=== PATIENT | male | born 1955 | race Caucasian/White ===

== ENCOUNTER → 2019-05-14 | Outpatient (CLI) | payer MEDICARE ==
--- NOTE | 2019-05-14 16:51 | CT ---
EXAMINATION TYPE: CT abdomen pelvis wo con DATE OF EXAM: 05/14/2019 COMPARISON: None INDICATION: Lower abdominal pain DLP: 1061 mGycm, Automated exposure control for dose reduction was used. CONTRAST: 0 mL of Isovue 300. Study performed with Oral Contrast TECHNIQUE: Axial images were obtained from above the diaphragm to the pubic rami in the axial plane a t 5 mm thick sections. Reconstructed images are reviewed on the computer in the coronal plane. FINDINGS: Limited CT sections are obtained the lung bases. The lung bases are clear. CT ABDOMEN: Liver: Normal Spleen: Normal Pancreas: Normal Adrenal glands: The adrenal glands are normal. Gallbladder: Surgically absent Kidneys: No masses are evident. No hydronephrosis is present. No cysts are present. There is a non obstructing 0.2 cm calcification in the posterior left mid kidney. Aorta: Vascular calcification is within the aorta. Inferior vena cava: Normal. CT PELVIS: Loops of bowel within the abdomen and pelvis are normal. Study is performed with oral contrast wh ich extends to the ascending colon. Appendix: Normal as visualized. Urinary bladder: Normal. Genitourinary structures: Prostate is somewhat prominent. Osseous structures: No suspicious lytic or sclerotic lesions. IMPRESSIONS: 1. Nonobstructing right renal stone. 2. Moderately Prominent prostate
--- NOTE | 2019-05-14 16:53 | XR ---
Lumbosacral spine HISTORY: Low back pain 5 views of lumbosacral spine There is multilevel spondylosis present. Minimal retrolisthesis grade 1 L3-4. No evident spondylolysi s. Sclerosis present in the posterior elements of the lower lumbar spine. Loss of disc height present at L2-3, L5-S1. Bone mineralization is reduced. Lumbar vertebral bodies show preserved height. Ather osclerotic vascular calcifications noted within the aorta. Surgical clips noted in the right upper qu adrant. IMPRESSION: Degenerative disc disease and facet arthropathy. Osteopenia.
--- NOTE | 2019-05-14 16:57 | XR ---
Pelvis HISTORY: Lower abdominal pain Single frontal view of the pelvis. Correlation CT dated 05/14/2019 Sclerotic linear foci within the femoral heads are noted. There is no acute fracture or dislocation. Degenerative disc changes are present in the visualized spine. IMPRESSION: Findings compatible with osteonecrosis within the femoral heads. No femoral head collapse .
== END ==
LOC: RADCTMAIN 14:02
PROVIDERS: ATTEND Family Medicine
DX: M51.37 Other intervertebral disc degeneration, lumbosacral region (principal); M46.97 Unspecified inflammatory spondylopathy, lumbosacral region; M85.80 Other specified disorders of bone density and structure, unspecified site; N20.0 Calculus of kidney; R10.30 Lower abdominal pain, unspecified
CPT/HCPCS: 72110; 72170; 74176; Q9967

== ENCOUNTER → 2019-10-01 | Outpatient (CLI) | payer MEDICARE ==
[2019-10-01 10:32] LABS: HCT 45.1 % (39.0-53.0); HGB 14.6 gm/dL (13.0-17.5); MCH 29.5 pg (25.0-35.0); MCHC 32.3 g/dL (31.0-37.0); MCV 91.2 fL (80.0-100.0); Mean Platelet Volume 8.5; Platelet Count 233 k/uL (150-450); RBC 4.95 m/uL (4.30-5.90); RDW 12.7 % (11.5-15.5); WBC 9.5 k/uL (3.8-10.6)
[2019-10-01 10:41] LABS: Potassium 4.7 mmol/L (3.5-5.1)
== END | disposition home or self-care (01) ==
LOC: LABPAT 09:50
PROVIDERS: ATTEND Internal Medicine Interventional Cardiology
DX: Z01.812 Encounter for preprocedural laboratory examination (principal); R94.39 Abnormal result of other cardiovascular function study
CPT/HCPCS: 36415; 80051; 82565; 84520; 85027

== ENCOUNTER → 2019-10-06 | Day surgery (SDC) | payer MEDICARE ==
[2019-10-02 14:53] VITALS: BMI 38.9
[~2019-10-06] MED LIST: ALPRAZolam 0.25 MG TAB PO PRN; ALPRAZolam 0.5 MG TAB PO PRN; ASPIRIN 325 MG TAB PO ONE; ASPIRIN 81 MG PO SCH; ATORVASTATIN 80 MG TAB PO ONE; HEPARIN SODIUM 1,000 UN/ML (10ML VL) ONE; IOPAMIDOL-370 125ML BTL INJ ONE; LIDOCAINE 1% INJ 10MG/ML (20 ML MDV) ONE; LIDOCAINE 1% INJ 10MG/ML (20 ML MDV) SQ ONE; LISINOPRIL 10 MG TAB PO SCH; METOCLOPRAMIDE 10 MG TAB PO SCH; METOPROLOL TARTRATE 25 MG TAB PO SCH; NITROGLYCERIN SL TABS 0.4 MG TAB SUBLINGUAL PRN; NON FORMULARY DRUG (Latanoprost/Pf [Latanoprost 0.005% Eye Drop] 1 DROP) BOTH EYES SCH; NON FORMULARY DRUG (Lovastatin 40 MG) PO SCH; NON FORMULARY DRUG (Omeprazole [Omeprazole] 20 MG) PO SCH; PREGABALIN 200 MG PO SCH; RX INFO: IV CONTRAST WAS GIVEN 1 EACH MISC MISCELLANE PRN; SERTRALINE 25 MG TAB PO SCH; SODIUM CHLORIDE 0.9% 1,000 ML IV SCH; SODIUM CHLORIDE 0.9% 1,000 ML in EMPTY BAG 1 BAG IV ONE; VERAPAMIL 2.5 MG/ML 2 ML AMP ONE; VERAPAMIL SYRINGE (5 MG/10 ML) INTRAARTER ONE; amLODIPine 2.5 MG TAB PO SCH; fentaNYL (PF) 50 MCG/ML 2 ML AMP IV ONE; fentaNYL (PF) 50 MCG/ML 2 ML AMP ONE
[2019-10-06 11:15] VITALS: RESP 18; TEMP 97.7
--- NOTE | 2019-10-06 13:59 | LTR ---
DATE OF SERVICE: 10/06/2019 RE: Adrien Arteaga Dear Dr. Aguilar; I had the pleasure to perform cardiac catheterization at [facility] on October 06, 2019 and a fully copy of the procedure note will be forwarded to you. In brief, he was found to have mild obstructive disease without any evidence of high- grade stenosis and based on those findings, I would recommend continue medical therapy with the aggressive coronary risk modifications being initiation. Thank you again for allowing me to participate in this patient's care. Please feel free to call for any questions. Sincere yours, Jen Silverio MD MMKYLEL / AISHWARYAN: [phone] /
--- NOTE | 2019-10-06 13:59 | CC ---
CARDIAC CATHETERIZATION REPORT Mr. Arteaga is a 64-year-old male with a known history of hypertension, hyperlipidemia, who has been complaining of symptoms of progressive dyspnea and chest discomfort. He had a myocardial perfusion imaging that revealed apical defect. In view of that, recommendation made regarding cardiac catheterization. The procedures, risks, and complication were discussed with the patient who is in full understanding and agreement. PROCEDURE: Patient was brought to the laborer beam house in a fasting semi-sedated state after receiving fentanyl and Benadryl and achieving moderate conscious sedated state. Using Xylocaine anesthesia and Seldinger technique, a 6-Ecuadorean sheath was introduced in the right radial artery. Selective right and left coronary angiography performed using 5-Ecuadorean 3.5 bend right and left Leena catheter. Multiple views of the coronary artery including hemiaxial views obtained. Following that, a 5-Ecuadorean tight pigtail catheter was introduced in the left ventricle and a 30-degree TOVAR view of the left ventricle was obtained. Following that, catheter and sheath were removed. Hemostasis was obtained with deployment of a TR band. There was no immediate complication. Patient is returned to his room in stable condition. Of note, the patient received 5000 units of intravenous heparin as well as intra-arterial verapamil. FINDINGS: 1. LEFT MAIN: This is a large-sized vessel, bifurcating into left circumflex, left anterior descending artery. Left main coronary artery has no evidence of high- grade stenosis. 2. LEFT ANTERIOR DESCENDING ARTERY: This is a large-sized vessel reaching toward the apex with a wraparound apex segment, giving rise to a large diagonal branch proximally. The takeoff of diagonal branch has a 20% to 30% plaque. The mid LAD has mild intimal disease of 10% to 20% without any evidence of high-grade stenosis. 3. LEFT CIRCUMFLEX: This is a codominant vessel, giving rise to 2 obtuse marginal branches of moderate caliber, distally bifurcating PDA and posterolateral segment and branches. The left circumflex as well as branches have no evidence of obstructive coronary artery disease. 4. RIGHT CORONARY ARTERY: This is a codominant vessel, moderate in caliber, giving rise to a PDA. The right coronary artery prior to the takeoff of the acute marginal branch has a 20% to 30% plaque. The rest of the vessel has no high-grade stenosis. 5. LEFT VENTRICULOGRAM: Left ventriculogram is performed in 30-degree TOVAR view and revealed normal left ventricular size and systolic function. The ejection fraction is 50%-55%. 6. HEMODYNAMICS: There was no gradient across the aortic valve. The left ventricular end-diastolic pressure was 20 mmHg. CONCLUSION: 1. Mild obstructive disease involving the diagonal branch and the right coronary artery. 2. Normal left ventricular size and systolic function. RECOMMENDATION: 1. In view of finding anatomy, I recommend continue medical therapy with aggressive coronary risk modifications being initiated. Those findings and recommendation were discussed with the patient and his family and they are in full understanding and agreement. 2. Duration of the procedure is 27 minutes. MMODL / IJN: [id number] /
[2019-10-06 17:29] VITALS: BP 110/62; PULSE 52
== END | disposition home or self-care (01) ==
LOC: CATHCVL 10:32
PROVIDERS: ATTEND Internal Medicine Interventional Cardiology
DX: I25.10 Atherosclerotic heart disease of native coronary artery without angina pectoris (principal); I10 Essential (primary) hypertension; R94.39 Abnormal result of other cardiovascular function study; Z87.891 Personal history of nicotine dependence; E78.5 Hyperlipidemia, unspecified; E78.00 Pure hypercholesterolemia, unspecified; Z82.49 Family history of ischemic heart disease and other diseases of the circulatory system; Z79.82 Long term (current) use of aspirin; Z79.899 Other long term (current) drug therapy
CPT/HCPCS: 93458; C1769; C1894; J2001; J3010; J1644; Q9967

== ENCOUNTER → 2020-05-11 | Outpatient (CLI) | payer MEDICARE ==
--- NOTE | 2020-05-11 14:41 | CT ---
CT CHEST FOR PULMONARY EMBOLISM. EXAMINATION TYPE: CT angio chest DATE OF EXAM: 05/11/2020 INDICATION: Abnormal coagulation profile CT DLP: 499.20 mGycm, Automated exposure control for dose reduction was used. CONTRAST: Patient injected with 100 mL of Isovue 370. COMPARISON: None TECHNIQUE: CT of the chest is performed on a spiral scan at 2 mm thick sections. Study is performed with intravenous contrast timed for evaluation for pulmonary embolism. This will limit additional po rtions of the evaluation. 3-D MIP images reconstructed by the technologist are reviewed on the compu ter in the coronal and sagittal planes. FINDINGS: No persistent filling defects are evident to suggest an acute pulmonary embolism. No mediastinal or hilar adenopathy enlarged by CT criteria is evident. The ascending aorta diameter at the level of the main pulmonary artery is 3.6 cm. The main pulmonary artery diameter at the bifur cation is 2.4 cm. There is a 0.6 similar peripheral right middle lobe nodule. Series [address] section through the upper abdomen are unremarkable. Small hiatal hernia is present. IMPRESSIONS: 1. No acute pulmonary embolism 2. Right middle lobe peripheral nodule. Follow-up CT chest exam in 6 months is recommended to reevalu ate this finding
== END | disposition home or self-care (01) ==
LOC: RADCTMAIN 12:20
PROVIDERS: ATTEND Family Medicine
DX: R91.1 Solitary pulmonary nodule (principal); R79.1 Abnormal coagulation profile
CPT/HCPCS: 82565; 84520; 71275; 36415; Q9967

== ENCOUNTER → 2020-07-07 | Outpatient (CLI) | payer MEDICARE ==
--- NOTE | 2020-07-07 16:36 | CONS ---
CONSULTATION DATE OF SERVICE: 07/07/2020 The 64-year-old gentleman has been evaluated in [facility] for possible obstructive sleep apnea-hypopnea syndrome. HISTORY OF PRESENT ILLNESS/SLEEP-WAKE EVALUATION: Patient's usual sleep schedule is from 11 p.m. until noon. Sometimes he has problems with falling asleep although no TV in bedroom . He usually sleeps on the side position with loud snoring and witnessed episodes by his of stopped breathing during sleep. He wakes up from sleep 3 times with nocturia and heartburn. In the morning the patient has difficulties paying attention, falling asleep during the day, worrying about his sleep. He has problems with memory, concentration, irritability, depression, sexual dysfunction. Independence Sleepiness Scale is 8. The patient also has restless leg symptoms. PAST MEDICAL HISTORY: His past medical history is positive for hypertension, hyperlipidemia, headaches, acid reflux, skin cancer of the arms. PAST SURGICAL HISTORY: Surgery for skin cancer of the arms, back surgery, cholecystectomy. FAMILY HISTORY: Heart problems. SOCIAL HISTORY: Smoker; up to 50 pack/years; quit in 2007. Alcohol consumption: None at the present time. REVIEW OF SYSTEMS: Multiple awakenings from sleep, tiredness and sleepiness during the day. MEDICATIONS: 1. Sertraline 25 mg once a day. 2. Aspirin 81 mg once a day. 3. Metformin 500 mg once a day. 4. Amlodipine 5 mg once a day. 5. Lisinopril 10 mg once a day. 6. Lovastatin 40 mg once a day. 7. Metoclopramide 10 mg one tablet 3 times a day. 8. Omeprazole 20 mg two capsules once a day. 9. Metoprolol 25 mg twice a day. 10.Pregabalin 200 mg twice a day. PHYSICAL EXAMINATION: GENERAL: A pleasant gentleman without distress. VITAL SIGNS: BP 119/64, HR 54, RR 15, height 5 feet 4 inches, weight 232 pounds, BMI 39.8, temperature 97.5, oxygen saturation at room air 95%. HEENT: PERRLA, EOMI. Evaluation of oropharynx showed tongue protrudes midline. Extremely low position of soft palate. Mallampati IV. NECK: Supple. No JVD. Thyroid is not palpable. Wide neck; 20-1/2 inches in circumference. LUNGS: Clear to percussion and to auscultation. Good air exchange. No wheezing or rhonchi. HEART: S1, S2 regular. No murmurs, gallops or rubs. ABDOMEN: Obese. EXTREMITIES: No clubbing or cyanosis. TRACER POWDER BLENDER: Awake, alert, and oriented X3. Cranial nerves 2 to 7 intact. There is no fasciculation or atrophy. noted. No focal deficits observed. IMPRESSION: 1. Snoring, witnessed episodes of stopped breathing during sleep, low position of soft palate, wide neck; obstructive sleep apnea-hypopnea syndrome. 2. Obesity. BMI 39.8. 3. Hypertension. 4. Hyperlipidemia. 5. Headaches. 6. Acid reflux. 7. Possibly restless legs syndrome. 8. History of skin carcinoma of the arms, treated surgically. 9. Status post cholecystectomy. 10.Status post back surgery. PLAN: 1. Polysomnography for evaluation of patient's breathing during sleep. 2. CPAP/BiPAP titration if sleep study confirms obstructive sleep apnea-hypopnea syndrome. 3. Preferable position during sleep on the side. 4. No driving if patient feels any sleepiness. 5. I will see patient for follow up visit to explain results of testing and following plan. Thank you very much for referring this patient for consultation. Sincerely, Sharif Bhatti MD, PhD, FAASM Diplomat of [place] [employer] [place] [employer] Underwriting Technician of [facility] [place] MMYOSELYN / MALIA: [phone] / MTDD
== END | disposition home or self-care (01) ==
LOC: SLEEP 14:55
PROVIDERS: ATTEND Internal Medicine
DX: G47.33 Obstructive sleep apnea (adult) (pediatric) (principal); I10 Essential (primary) hypertension; E78.5 Hyperlipidemia, unspecified; R51.9 Headache, unspecified; K21.9 Gastro-esophageal reflux disease without esophagitis; Z85.828 Personal history of other malignant neoplasm of skin; Z90.49 Acquired absence of other specified parts of digestive tract; Z98.890 Other specified postprocedural states; E66.9 Obesity, unspecified; Z99.89 Dependence on other enabling machines and devices; Z79.899 Other long term (current) drug therapy; Z79.82 Long term (current) use of aspirin; Z79.84 Long term (current) use of oral hypoglycemic drugs; Z68.39 Body mass index [BMI] 39.0-39.9, adult
CPT/HCPCS: 99211

== ENCOUNTER → 2024-01-06 | Outpatient (CLI) | payer MEDICARE ==
[2024-01-06 07:59] LABS: INR 0.9 (<1.2); Prothrombin Time 10.5 sec (10.0-12.5)
--- NOTE | 2024-01-06 08:12 | XR ---
EXAMINATION TYPE: XR chest 2V DATE OF EXAM: 01/06/2024 7:40 AM CLINICAL INDICATION:Male, 68 years old with history of ENCOUNTER FOR OTHER PREPROCEDURAL EXAMINATION; [facility] COMPARISON: Chest radiographs from 01/06/2024 TECHNIQUE: XR chest 2V Frontal and lateral views of the chest. FINDINGS: Lungs/Pleura: There is no evidence of pleural effusion, focal consolidation, or pneumothorax. Pulmonary vascularity: Unremarkable. Heart/mediastinum: Cardiomediastinal silhouette is unremarkable. Musculoskeletal: No acute osseous pathology. There is fixation hardware in the lower cervical spine. IMPRESSION: No acute cardiopulmonary disease/process.
[2024-01-06 08:14] LABS: Partial Thromboplastin Time 19.9 sec (22.0-30.0)
[2024-01-06 10:22] LABS: Basophils # (A) 0.03 X 10*3/uL (0.00-0.10); Basophils % (A) 0.5 %; Eosinophils # (A) 0.15 X 10*3/uL (0.04-0.35); Eosinophils % (A) 2.6 %; HCT 34.8 % (39.6-50.0); HGB 10.5 g/dL (13.0-17.0); Lymphocytes # (A) 1.78 X 10*3/uL (0.90-5.00); Lymphocytes % (A) 31.3 %; MCH 27.4 pg (27.0-32.0); MCHC 30.2 g/dL (32.0-37.0); MCV 90.9 FL (80.0-97.0); Mean Platelet Volume 10.7 FL (9.5-12.2); Monocytes # (A) 0.52 X 10*3/uL (0.20-1.00); Monocytes % (A) 9.1 %; NRBC Per 100 WBC 0 X 10*3/uL (0.00-0.01); Neutrophils % (A) 56.3 %; Platelet Count 177 X 10*3/uL (140-440); RBC 3.83 X 10*6/uL (4.40-5.60); RDW 13.9 % (11.5-14.5); WBC 5.69 X 10*3/uL (4.50-10.00)
[2024-01-06 10:37] LABS: BUN/Creat Ratio 12.21 Ratio (12.00-20.00); Blood Urea Nitrogen 17.1 mg/dL (9.0-27.0); Calcium 8.9 mg/dL (8.7-10.3); Carbon Dioxide 24.8 mmol/L (21.6-31.8); Chloride 102 mmol/L (96-109); Glucose 105 mg/dL (70-110); Potassium 4.9 mmol/L (3.5-5.5); Sodium 138 mmol/L (135-145)
[2024-01-06 13:14] LABS: Appearance,Urine Clear (Clear); Bilirubin,Urine Negative (Negative); Blood,Urine Negative (Negative); Color,Urine Yellow (Yellow); Ketones,Urine Negative (Negative); Nitrite,Urine Negative (Negative); PH, Urine 5.5; Specific Gravity,Urine 1.009 (1.001-1.030); Urobilinogen,Urine 0.2 E.U./DL
== END | disposition home or self-care (01) ==
LOC: LABWHC1 06:55
PROVIDERS: ATTEND Orthopaedic Surgery Orthopaedic Surgery of the Spine
DX: Z01.818 Encounter for other preprocedural examination (principal); M50.223 Other cervical disc displacement at C6-C7 level; R00.1 Bradycardia, unspecified; Z22.322 Carrier or suspected carrier of Methicillin resistant Staphylococcus aureus
CPT/HCPCS: 36415; 71046; 80048; 81003; 85025; 85610; 85730; 87070; 93005

== ENCOUNTER 2024-01-22 06:06 | Day surgery (SDC) | payer MEDICARE ==
[2024-01-22] MEDS ORDERED: HYDROmorphone 0.5 MG/0.5 ML SYRINGE IVP PRN ×2 (06:13→09:11)
[2024-01-22] MEDS ORDERED: fentaNYL (PF) 50 MCG/ML 2 ML AMP IV PRN (06:13)
[2024-01-22] MEDS: IV FLUID CONTINUATION 1,000 ML IV ONE (07:00)
[2024-01-22] MEDS: LACTATED RINGERS 1,000 ML IV SCH (07:00)
[2024-01-22] MEDS: LIDOCAINE 1% (10MG/ML) FOR IV START INTRADERMA ONE (07:00)
[2024-01-22] MEDS: ONDANSETRON 4 MG/2 ML VIAL IVP ONE (07:14)
[2024-01-22] MEDS ORDERED: GLYCOPYRROLATE 0.2 MG/ML 2 ML VIAL ONE (07:22)
[2024-01-22] MEDS ORDERED: ROCURONIUM 10 MG/ML (5 ML VIAL) IV ONE (07:22)
[2024-01-22] MEDS ORDERED: PHENYLEPHRINE 10 MG/ML VIAL ONE (07:22)
[2024-01-22] MEDS ORDERED: NEOSTIGMINE 1 MG/ML 10 ML VIAL ONE (07:22)
[2024-01-22] MEDS ORDERED: SUCCINYLCHOLINE CHLORIDE 200 MG/10 ML VIAL IV ONE (07:22)
[2024-01-22] MEDS ORDERED: MIDAZOLAM 2 MG/2 ML VIAL ONE (07:22)
[2024-01-22] MEDS ORDERED: PROPOFOL 10 MG/ML 20 ML VIAL IV ONE (07:22)
[2024-01-22] MEDS ORDERED: ePHEDrine 50 MG/ML 1 ML VIAL ONE (07:22)
[2024-01-22] MEDS ORDERED: fentaNYL (PF) 50 MCG/ML 2 ML AMP ONE (07:22)
[2024-01-22] MEDS ORDERED: LIDOCAINE 1% INJ 10MG/ML (20 ML MDV) ONE (07:22)
[2024-01-22 07:25] LABS: Glucose,Whole Blood 102 mg/dL (70-110)
[2024-01-22] MEDS: BUPIVACAINE (PF) 0.5% 30 ML VIAL SQ ONE ×2 (08:09)
[2024-01-22] MEDS: LIDOCAINE 2%-EPI 1:100,000 20 ML VIAL SQ ONE ×2 (08:09)
[2024-01-22] MEDS: THROMBIN (BOVINE) 5,000 UNIT VIAL MISCELLANE ONE (08:10)
[2024-01-22] MEDS: ceFAZolin 1,000 MG in SODIUM CHLORIDE 0.9% IRRIGATIO 1,000 ML IRRIGATION PRN (08:13)
[2024-01-22] MEDS: LACTATED RINGERS 1,000 ML IV ONE (09:01)
[2024-01-22] MEDS ORDERED: HYDROmorphone 1 MG/ML 1 ML SYRINGE IVP PRN (09:11)
[2024-01-22] MEDS ORDERED: BENZOCAINE/MENTHOL LOZENG 1 EACH LOZENGE MUCOUS MEM PRN (09:11)
[2024-01-22] MEDS ORDERED: HYDROcodone/APAP 5-325MG 1 EACH TAB PO PRN (09:11)
[2024-01-22] MEDS ORDERED: ACETAMINOPHEN TAB 325 MG TAB PO PRN (09:12)
[2024-01-22] MEDS ORDERED: CYCLOBENZAPRINE 10 MG TAB PO PRN (09:12)
[2024-01-22] MEDS ORDERED: ONDANSETRON 4 MG/2 ML VIAL IVP PRN (09:12)
[2024-01-22] MEDS ORDERED: SODIUM CHLORIDE 0.9% 1,000 ML IV SCH (09:15)
[2024-01-22 09:21] VITALS: TEMP 97
--- NOTE | 2024-01-22 09:22 | XR ---
EXAMINATION TYPE: XR cervical spine 1V, XR cervical spine 1V DATE OF EXAM: 01/22/2024 8:33 AM CLINICAL INDICATION:Male, 68 years old with history of Needle Placement; [facility] COMPARISON: 01/22/2024 TECHNIQUE: Multiple Lateral cervical radiograph for surgical planning FINDINGS: The needle is directed in the anterior subcutaneous tissues due to poor penetration is difficult to a scertain which vertebral body is detected at appears to be directed towards the C6 level which is not visualized due to poor penetration. IMPRESSION: Degeneration changes of cervical spine. Instrument partially visualized in the anterior soft tissues of the thorax directing towards the spin e wo particular level may be pointed toward C6.
--- NOTE | 2024-01-22 09:24 | P.OP ---
Date of Procedure: 01/22/24 Preoperative Diagnosis: Cervical stenosis C6 7, herniated nucleus pulposis C6 7, upper extremity radiculopathy, retained hardware C5 6 from prior fusion Postoperative Diagnosis: Same Anesthesia: GETA Pathology: none sent Condition: stable Disposition: PACU Description of Procedure: BRIEF OPERATIVE NOTE Preoperative Diagnosis:Cervical stenosis C6 7, herniated nucleus pulposis C6 7, upper extremity radiculopathy, retained hardware C5 6 from prior fusion Postoperative Diagnosis:Cervical stenosis C6 7, herniated nucleus pulposis C6 7, upper extremity radiculopathy, retained hardware C5 6 from prior fusion Procedure: Removal of hardware C5 6 Exploration of fusion C56 with findings of solid fusion Anterior cervical decompression With discectomy and fusion C6 7 Placement of interbody graft C6 7 Application of anterior cervical plateC6 7 Surgeon: Dr. Armendariz Motion Picture Set Grip: Jj Morales is present throughout the entire the case persistence during positioning, dissection, exposure, visualization, and all crucial elements of the case as well as closure.True FLYNN student Anesthesia: General anesthesia Estimated blood loss:Approximately 50 mL Complications: None apparent Components implanted:K2M striker Carlton anterior cervical plate with 3.5 and 4.0 screws and Vikos interbody allograft bone graft with 1 mL of bone putty with removal of Medtronic zephyr plate and screws in total Disposition: To recovery room in good stable condition. OPERATIVE INDICATIONS The patient has had long-standing issues in their neck and upper extremities. He's been having some worsening symptoms over the past several months. About 14 years ago he had undergone prior surgery on his cervical spine with our service and underwent anterior cervical decompression with discectomy and fusion at C5 6. He did very well with this for over a decade. However over the past few months he has been having worsening and new symptoms at his bilateral upper extremities.The patient has been through conservative treatment. His found have retained hardware at C5 6 with evidence of new disc degeneration and disc herniation with stenosis at C6 7 which correlated well with his neck and upper extremity symptoms.We discussed various treatment options including surgery, and the patient wishes to proceed with surgery We discussed the risk, patient's alternatives and benefits of surgery including but not limited to, risk of bleeding risk of infection, risk of need for further surgery, risk of decreased, loss of motion, muscle function, malunion nonunion, hardware failure, nerve damage, paralysis, heart attack, and . OPERATIVE SUMMARY After discussing all the risks, patient alternatives and benefits at length, the patient elected to proceed with surgical intervention, signed informed consent, and presented for their procedure. The patient was seen and examined in the preoperative holding area and the surgical site was marked. The patient was given antibiotics and brought to the operating room. The patient was positioned on the operating room table in a supine position being careful to pad any bony prominences and pressure points. The patient was sedated and intubated by anesthesia in standard fashion. Once the airway and C- spine were stabilized the patient's arms were padded and tucked at His side, w ith her shoulders gently taped. The head was placed in a donut pad with the neck in good neutral alignment and position. We were careful to maintain the patient's cervical spine and good neutral alignment and position throughout. The patient was prepped and draped in a normal standard fashion. An appropriate timeout and keystone protocol performed. We were able to proceed with the surgery. The local wound area was infiltrated with local anesthetic. An incision was made transversely approximately 2-1/2 cm over the appropriate levelsBelow his prior incision now over C6 7. Dissection was taken down subcutaneously to the level of the platysma which was split in line with its fibers. Dissection was taken with a carotid approach, with the trachea and esophagus medial and the carotid sheath laterally. We dissected down to the anterior surface of the vertebral bodies. I was able to easily identify the plate at C5 6 and expose the direct caudad disc at C6 7. Intraoperative x-ray was taken which showed a marker at the appropriate level. I was able to expose the plate at C5 6. With the appropriate transportation is able to remove the plate and screws as it was going to be potentially impinging over the next level hardware. As able move the screws and plate in total. The fusion was checked and found to have solid bone growth across the space from C5 6 for some of fusion. I further dissected down to C6 7 appropriately.With the appropriate level positively confirmed, we were able to proceed with discectomy at the appropriate levelsAt C6 7. All of the operative levels were exposed appropriately. The patient had all their twitches back, and there was no evidence of recurrent laryngeal issue. The wound was copiously irrigated and suctioned dry as had been done periodically throughout the case. At the appropriate level Of C6 7, I established an annulotomy with an 11 blade scalpel. A discectomy was performed with a combination of pituitary rongeurs, curettes, a high-speed bur, and Kerrison rongeurs. The posterior longitudinal ligament was taken down as were any posterior osteophytes. This gave good central and bilateral foraminal decompression. There is no evidence of any dural tear or leak. The endplates were prepared with a high-speed bur. With the endplates in good parallel position, I was able to size for the appropriate size interbody graft. The wound was irrigated and suctioned dry the graft was prepared and malleted into position. It had good alignment and position with the anterior surface flush with the anterior surface of the vertebral bodies. With the grafts intact, I was able to measure and contour and appropriate sized plate. The plate was positioned at the midline over the appropriate levelsC6 7. Screw holes were established with a hand drill and drill guide. Screws were placed in good alignment and position with excellent bony purchase. They were seated under the locking device. The construct was checked and found to be stable. Intraoperative x-ray was taken which showed good alignment and position of the implants at the appropriate levelsThe being imaging is difficult due to patient's body habitus I was able to positively confirmed based on the prior hardware intraoperatively.. There was no evidence of any dural tear or leak. Good hemostasis was maintained. The wound was copiously irrigated and suctioned dry as had been done periodically throughout the case. The platysma was closed with absorbable suture. The subcutaneous tissue was closed. The subcuticular tissue was closed with absorbable suture. The wound was cleaned and dried and dressed appropriately. A soft cervical collar was placed appropriately. The patient was woken up by anesthesia, extubated, transferred back gently to their hospital bed and brought to the recovery room in good stable condition. The patient will be admitted to the hospital for appropriate postoperative care, medical management and monitoring. We will continue to follow them closely about the postoperative course.
[2024-01-22 10:49] VITALS: RESP 18
[2024-01-22] MEDS: TAMSULOSIN 0.4 MG CAP.ER.24H PO STA (12:07)
[2024-01-22 12:28] VITALS: BP 111/75; PULSE 75
[2024-01-22] MEDS ORDERED: HYDROcodone/APAP 5-325MG 1 EACH TAB PO SCH (16:00)
[2024-01-22] MEDS ORDERED: GABAPENTIN 300 MG CAP PO SCH (16:00)
[2024-01-22] MEDS ORDERED: methocarbamoL 750 MG TAB PO SCH (16:00)
[2024-01-22] MEDS ORDERED: METOPROLOL TARTRATE 25 MG TAB PO SCH (21:00)
[2024-01-22] MEDS ORDERED: metFORMIN 500 MG TAB PO SCH (21:00)
[2024-01-22] MEDS ORDERED: NON FORMULARY DRUG (Latanoprost/Pf [Latanoprost 0.005% Eye Drop] 7.5 ML Drops) BOTH EYES SCH (21:00)
[2024-01-22] MEDS ORDERED: NON FORMULARY DRUG (Omeprazole [Omeprazole] 20 MG Capsule.Dr) PO SCH (21:00)
[2024-01-23] MEDS ORDERED: NON FORMULARY DRUG (Lovastatin 40 MG Tab) PO SCH (09:00)
[2024-01-23] MEDS ORDERED: lisinopriL 10 MG TAB PO SCH (09:00)
[2024-01-23] MEDS ORDERED: CITALOPRAM HYDROBROMIDE 10 MG TAB PO SCH (09:00)
== END 2024-01-22 12:49 | disposition home or self-care (01) ==
LOC: OR 06:06
PROVIDERS: ATTEND Orthopaedic Surgery Orthopaedic Surgery of the Spine
DX: M48.02 Spinal stenosis, cervical region (principal); M50.123 Cervical disc disorder at C6-C7 level with radiculopathy; Z98.1 Arthrodesis status; I10 Essential (primary) hypertension; E11.69 Type 2 diabetes mellitus with other specified complication; E78.5 Hyperlipidemia, unspecified; G47.30 Sleep apnea, unspecified; F41.8 Other specified anxiety disorders; K21.9 Gastro-esophageal reflux disease without esophagitis; Z87.891 Personal history of nicotine dependence; Z79.899 Other long term (current) drug therapy; Z79.84 Long term (current) use of oral hypoglycemic drugs; Z79.1 Long term (current) use of non-steroidal anti-inflammatories (NSAID); Z79.85 Long-term (current) use of injectable non-insulin antidiabetic drugs; Z79.891 Long term (current) use of opiate analgesic
CPT/HCPCS: 72020; 22551; 22853; 20930; 22845; C1713 ×2; C1762; J2250; J0330; J2710; J0690 ×2; J2405; J2001; J3010; J2704; J2371; J0665

== ENCOUNTER 2024-01-22 21:03 | Emergency (ER) | payer MEDICARE ==
--- NOTE | 2024-01-22 21:32 | ED ---
General Adult HPI - General Chief complaint: Abdominal Pain Stated complaint: Abdominal Pain, Urine Retention Source: patient Mode of arrival: ambulatory Limitations: no limitations - History of Present Illness Initial comments: Adrien is a pleasant 68 yo M who underwent surgery earlier today with general anesthesia. Patient had difficulty urinating in the PACU but was able to pass a few drops and was discharged home. Patient has not been able to urinate since then. Patient has no history of urinary retention. - Related Data Home Medications Medication Instructions Recorded Confirmed Latanoprost/Pf [Latanoprost 0.005% 1 drop BOTH EYES HS 10/02/19 01/17/24 Eye Drop] Lovastatin [Mevacor] 40 mg PO DAILY 10/02/19 01/17/24 Metoprolol Tartrate [Lopressor] 25 mg PO BID 10/02/19 01/17/24 Omeprazole 20 mg PO BID 10/02/19 01/17/24 lisinopriL [Zestril] 10 mg PO DAILY 10/02/19 01/17/24 Citalopram Hydrobromide 10 mg PO DAILY 01/17/24 01/17/24 [Citalopram HBr] Gabapentin [Neurontin] 300 mg PO TID 01/17/24 01/17/24 HYDROcodone/APAP 5-325MG [[place] 1 tab PO TID 01/17/24 01/17/24 5-325] Meloxicam [Mobic] 15 mg PO DAILY 01/17/24 01/17/24 metFORMIN HCL 500 mg PO BID 01/17/24 01/17/24 methocarbamoL 750 mg PO TID 01/17/24 01/17/24 Allergies Allergy/AdvReac Type Severity Reaction Status Date / Time No Known Allergies Allergy Verified 01/17/24 12:41 Review of Systems ROS Statement: Those systems with pertinent positive or pertinent negative responses have been documented in the HPI. ROS Other: All systems not noted in ROS Statement are negative. Past Medical History Past Medical History: Cancer, Chest Pain / Angina, GERD/Reflux, Hyperlipidemia, Hypertension Additional Past Medical History / Comment(s): "lazy bowel",melanoma arm-"removed with cream" History of Any Multi-Drug Resistant Organisms: None Reported Past Surgical History: Back Surgery, Cholecystectomy, Orthopedic Surgery Additional Past Surgical History / Comment(s): cervical fusion, crush injury of 2nd digit rt hand Past Anesthesia/Blood Transfusion Reactions: No Reported Reaction Past Psychological History: Depression Past Drug Use History: None Reported - Past Family History Mother Additional Family Medical History / Comment(s): heart problems Father Additional Family Medical History / Comment(s): heart problems General Exam - General Exam Comments Initial Comments: Physical Exam GENERAL: Patient is well-developed and well-nourished Appears uncomfortable Cervical soft collar in place HENT: Normocephalic, Atraumatic EYES: PERRL, EOMI PULMONARY: Unlabored respirations. CARDIOVASCULAR: RRR Warm and well perfused extremities ABDOMEN: Palpable bladder SKIN: No rashes or bruising : Deferred NEUROLOGIC: Alert and oriented Normal speech Normal gait MUSCULOSKELETAL: Moving all extremities with no apparent injury PSYCHIATRIC: No SI/HI Limitations: no limitations Course Vital Signs 01/22/24 21:04 Temperature 97.5 F L Pulse Rate 116 H Respiratory 16 Rate Blood Pressure 115/64 O2 Sat by Pulse 97 Oximetry Medical Decision Making - Medical Decision Making Was pt. sent in by a medical professional or institution (Dr. PA, MACHINE CLOTH TRIMMER, urgent care, hospital, or half-way...) When possible be specific @ -No Did you speak to anyone other than the patient for history (EMS, parent, family, police, friend...)? What history was obtained from this source @ -No Did you review nursing and triage notes (agree or disagree)? Why? @ -I reviewed and agree with nursing and triage notes Were old charts reviewed (outside hosp., previous admission, EMS record, old EKG, old radiological studies, urgent care reports/EKG's, half-way records)? Report findings @ -Notes from earlier today were reviewed Differential Diagnosis (chest pain, altered mental status, abdominal pain women, abdominal pain men, vaginal bleeding, weakness, fever, dyspnea, syncope, headache, dizziness, GI bleed, back pain, seizure, CVA, palpatations, mental health)? @ -Acute urinary retention EKG interpreted by me (3pts min.). @ -As above X-rays interpreted by me (1pt min.). @ -None done CT interpreted by me (1pt min.). @ -None done U/S interpreted by me (1pt. min.). @ -Bladder scan greater than 900 cc of urine What testing was considered but not performed or refused? (CT, X-rays, U/S, labs)? Why? @ -None What meds were considered but not given or refused? Why? @ -None Did you discuss the management of the patient with other professionals (professionals i.e. , PA, MACHINE CLOTH TRIMMER, lab, RT, psych nurse, social service manager, solderer torch, teacher, correctional probation officer, catalytic case operator)? Give summary @ -No Was smoking cessation discussed for >3mins.? @ -No Was critical care preformed (if so, how long)? @ -No Were there social determinants of health that impacted care today? How? (Homelessness, low income, unemployed, alcoholism, drug addiction, transportation, low edu. Level, literacy, decrease access to med. care, senior living, rehab)? @ -No Was there de-escalation of care discussed even if they declined (Discuss DNR or withdrawal of care, Hospice)? DNR status @ -No What co-morbidities impacted this encounter? (DM, HTN, Smoking, COPD, CAD, Cancer, CVA, ARF, Chemo, Hep., AIDS, mental health diagnosis, sleep apnea, morbid obesity)? @ -None Was patient admitted / discharged? Hospital course, mention meds given and route, prescriptions, significant lab abnormalities, going to OR and other pertinent info. @ -Discharged Was seen and evaluated. Patient has acute urinary retention with greater than 900 cc in his bladder. Curiel catheter was placed patient was plan for discharge home with Curiel catheter and outpatient follow-up. Undiagnosed new problem with uncertain prognosis? @ -No Drug Therapy requiring intensive monitoring for toxicity (Heparin, Nitro, Insulin, Cardizem)? @ -No Were any procedures done? @ -No Diagnosis/symptom? @ -Urinary retention Acute, or Chronic, or Acute on Chronic? @ -Acute Uncomplicated (without systemic symptoms) or Complicated (systemic symptoms)? @ -Default Side effects of treatment? @ -No Exacerbation, Progression, or Severe Exacerbation? @ -No Poses a threat to life or bodily function? How? (Chest pain, [place], MD, pneumonia, PE, COPD, DKA, ARF, appy, cholecystitis, CVA, Diverticulitis, Homicidal, Suicidal, threat to staff... and all critical care pts) @ -No Disposition Clinical Impression: Urinary retention Disposition: HOME SELF-CARE Condition: Stable Is patient prescribed a controlled substance at d/c from ED?: No Referrals: Rosalina Bernabe MD [Primary Care Provider] - 1-2 days Gene Yee MD [STAFF PHYSICIAN] - 1-2 days
[2024-01-22 21:50] VITALS: RESP 20
[2024-01-22 22:17] VITALS: BP 133/60; PULSE 105; TEMP 97.6
== END 2024-01-22 22:16 | disposition home or self-care (01) ==
LOC: EC 21:03
DX: R33.9 Retention of urine, unspecified (principal); Z90.49 Acquired absence of other specified parts of digestive tract
CPT/HCPCS: 51702; 51798; 99284

== ENCOUNTER 2024-08-07 05:49 | Day surgery (SDC) | payer MEDICARE, OTHER ==
[2024-08-06 11:42] VITALS: BMI 40.3
[2024-08-07 06:49] VITALS: TEMP 97.9
[2024-08-07] MEDS: LACTATED RINGERS 1,000 ML IV SCH (07:02)
[2024-08-07] MEDS: IV FLUID CONTINUATION 1,000 ML IV ONE (07:02)
[2024-08-07 07:09] LABS: Glucose,Whole Blood 109 mg/dL (70-110)
[2024-08-07] MEDS ORDERED: MIDAZOLAM 2 MG/2 ML VIAL ONE (07:28)
[2024-08-07] MEDS ORDERED: PROPOFOL 10 MG/ML 20 ML VIAL IV ONE (07:28)
[2024-08-07] MEDS ORDERED: fentaNYL (PF) 50 MCG/ML 2 ML AMP ONE (07:28)
[2024-08-07] MEDS ORDERED: LIDOCAINE 1% INJ 10MG/ML (20 ML MDV) ONE (07:28)
[2024-08-07] MEDS ORDERED: KETAMINE HCL IN 0.9 % NACL 50 MG/5 ML SYRINGE ONE (07:28)
--- NOTE | 2024-08-07 07:45 | P.PCN ---
Date of Procedure: 08/07/24 Procedure(s) Performed: Brief history: Patient is a [id number] white male scheduled for an elective upper endoscopy as well as colonoscopy as a part of evaluation of iron deficiency anemia. Procedure performed: Esophagogastroduodenoscopy biopsy Colonoscopy Preoperative diagnosis: Iron deficiency anemia Anesthesia: MAC Procedure: After informed consent was obtained from the patient was brought into the endoscopy unit and IV sedation was administered by anesthesia under continuous monitoring. Initially upper endoscopy was done. The Olympus GF 160 video endoscope was inserted inserted into the mouth and esophagus intubated without any difficulty and was gradually advanced into the stomach and duodenum and carefully examined. The bulb and second part of the duodenum appeared normal. Biopsies were done from the duodenum rule out celiac disease. The scope was then withdrawn into the stomach adequately insufflated with air and upon careful examination the antrum had linear areas of erythema consistent with gastritis and biopsies were done from this area. Mucosa of the body, cardia and fundus appeared normal. The scope was then withdrawn into the esophagus. The GE junction was located at 40 cm to the incisors. It appeared regular with no erythema erosions or ulcerations. Rest of the esophagus appeared normal. Patient tolerated the procedure well. At this time the patient continued to remain sedation. Initial digital rectal examination was normal. Olympus CF 160 video colonoscope was then inserted into the rectum and gradually advanced to the cecum without any difficulty. Careful examination was performed as the scope was gradually being withdrawn. The prep was excellent. The cecum, ascending colon, transverse colon, descending colon, sigmoid colon and rectum appeared normal. Sigmoid diverticulosis. Retroflexion was performed in the rectum and no lesions were noted. Patient tolerated the procedure well. Impression: 1. Upper endoscopy revealed mild antral gastritis but no evidence of esophagitis or peptic ulcer disease 2. Colonoscopy revealed scattered sigmoid diverticulosis but no evidence of colorectal neoplasia Recommendations: Findings of this examination were discussed with the patient as well as his family. He was advised to follow-up with the biopsy results. Continue with iron supplements and monitor CBC periodically. If he continues to have persistent iron deficiency anemia, other a small bowel capsule endoscopy in the future. Recommend repeat colonoscopy in 10 years
[2024-08-07 08:09] VITALS: BP 119/65; PULSE 73; RESP 18
== END 2024-08-07 08:37 | disposition home or self-care (01) ==
LOC: ORWHC2ENDO 05:49
PROVIDERS: ATTEND Internal Medicine Gastroenterology
DX: K29.50 Unspecified chronic gastritis without bleeding (principal); D50.9 Iron deficiency anemia, unspecified; K57.30 Diverticulosis of large intestine without perforation or abscess without bleeding; I10 Essential (primary) hypertension; E78.5 Hyperlipidemia, unspecified; E11.9 Type 2 diabetes mellitus without complications; F32.A Depression, unspecified; K21.9 Gastro-esophageal reflux disease without esophagitis; Z90.89 Acquired absence of other organs; Z79.899 Other long term (current) drug therapy; Z79.84 Long term (current) use of oral hypoglycemic drugs
CPT/HCPCS: 88305; 45378; 43239; J2250; J2003; J3010; J2704